=== PATIENT | female | born 1940 | race Two or more races ===

== ENCOUNTER 2018-10-19 06:49 | Day surgery (SDC) | payer OTHER ==
[2018-10-15 11:07] VITALS: BMI 23.6
[2018-10-19] MEDS ORDERED: THROMBIN (BOVINE) 5,000 UNIT VIAL TP ONE (07:06)
[2018-10-19] MEDS ORDERED: TETRACAINE 0.5% OPHTH SOLN 2 ML BOTTLE ONE (07:06)
[2018-10-19] MEDS ORDERED: ERYTHROMYCIN 0.5% OPHTHALMIC OINTMENT 3.5 GM TUBE ONE (07:06)
[2018-10-19] MEDS ORDERED: POVIDONE-IODINE 5% OPHTHALMIC PREP 30 ML SOLUTION ONE (07:07)
[2018-10-19] MEDS ORDERED: BUPIVACAINE HCL/PF 0.5% (5MG/ML) 10 ML VIAL ONE (07:07)
[2018-10-19] MEDS ORDERED: LIDOCAINE 1%/EPI 1:100000 (20 ML MULTI DOSE VIAL) ONE (07:07)
[2018-10-19] MEDS ORDERED: PROPOFOL 20 ML ONE ×3 (07:48)
[2018-10-19] MEDS ORDERED: MIDAZOLAM HCL 2 MG/2 ML SINGLE DOSE VIAL ONE (07:48)
[2018-10-19] MEDS ORDERED: SUCCINYLCHOLINE CHLORIDE 200 MG/10 ML VIAL ONE (07:50)
[2018-10-19] MEDS ORDERED: TETRACAINE 0.5% OPHTH SOLN 2 ML BOTTLE OU ONE (07:50)
[2018-10-19] MEDS ORDERED: ONDANSETRON 4 MG/2 ML VIAL ONE (07:56)
[2018-10-19] MEDS ORDERED: DEXAMETHASONE SOD PHOSPHATE 4 MG/1 ML VIAL ONE (07:56)
[2018-10-19] MEDS ORDERED: ceFAZolin SODIUM 1 GM VIAL ONE (07:56)
[2018-10-19] MEDS ORDERED: KETOROLAC TROMETHAMINE 30 MG/1 ML VIAL ONE (07:56)
[2018-10-19] MEDS ORDERED: ERYTHROMYCIN 0.5% OPHTHALMIC OINTMENT 3.5 GM TUBE OU ONE ×2 (08:20→09:07)
[2018-10-19 10:29] VITALS: TEMP 98
[2018-10-19 10:41] VITALS: BP 116/63; PULSE 70
--- NOTE | 2018-10-19 10:59 | OP ---
DATE OF OPERATION: 10/19/2018 PREOPERATIVE DIAGNOSIS: Epiphora, right and left eye in the setting of lower lid laxity and punctal verticalization. 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 PROCEDURE: Lateral tarsal strip, right lower lid; lateral tarsal strip, left lower lid; conjunctivoplasty of punctal inversion and excision of conjunctival chalasis, right; conjunctivoplasty with punctal inversion and excision of conjunctival chalasis, left. SURGEON: Kyle Bateman MD ANESTHESIA: Local with sedation. COMPLICATIONS: None. ESTIMATED BLOOD LOSS: 3-4 mL OPERATIVE REPORT: Patient was brought to the operating room, placed on the operating room table. Vital signs monitored by Anesthesia. Tetracaine was placed in both eyes. Lateral canthal line was marked, both lateral canthi. Timeout was performed. Following which, a 50/50 mixture of 2% Xylocaine and 1:100,000 epinephrine and 0.5% Marcaine was injected subcutaneously in the lateral canthi down to the periosteum of the lateral orbital rim, the lateral third of the upper and lower lid and nasal third of the lower lid transconjunctivally. Tetracaine had been placed in both eyes. The patient was prepped and draped in usual sterile fashion, exposing both eyes, and the following procedure was performed bilaterally. Lateral canthal incision was made at the lateral canthus. This was carried down through skin and subcutaneous tissue with 15 blade, followed by a Mcclain needle until the periosteum was reached. The inferior edin of the lateral canthal tendon was released from the orbital rim with sharp dissection with a Mcclain needle. Hemostasis was achieved with Mcclain needle. The lower lid was overlapped at the orbital rim, marked with sterile marking pen, divided into an anterior and posterior lamella. The anterior lamella was excised. The posterior lamella was noted inferiorly, posteriorly and superiorly, and the lateral tarsal strip that had been created was secured with a double-arm 5-0 chromic reinforced with two 6-0 Vicryl lasso sutures. These were passed through the internal surface of the orbital rim at the junction with the superior edin of the lateral canthal tendon. Prior to tying the Prolene, the lid was everted. Subpunctal diameter of conjunctival retractors was excised, and the retractors were then sutured in backhand fashion to the tarsal , straddling the punctum and then by a double-arm 5-0 chromic exited through full-thickness conjunctiva below the excision and around to the skin of the nasal eyelet for punctal inversion. A small amount of plica was removed inferiorly to get rid of conjunctival chalasis as best judged by the position of the eyelid once the Prolene was tightened. The lateral canthal angle was performed with a buried 5-0 chromic to the freeman line of the upper and lower lid, recreating the lateral canthal angle. The Prolene was then tied, attaching the tarsal strip to the orbital rim. The excess tarsal strip was overlapped with Prolene, tied with a 5-0 chromic. Antibiotic irrigation was used throughout the case. The subcuticular tissues were closed with 5-0 chromic, and the skin was closed with a running 6-0 plain suture with plastic technique. The nasal 5-0 chromic suture was now tied, inverting the punctum and tied on the external surface. Erythromycin ointment was placed in the eye and on the lateral canthus and on the nasal canthus and nasal suture, and the patient was taken to the recovery room in stable condition. KYLE BATEMAN M.D. [id number]
[2018-10-19] MEDS ORDERED: PROMETHAZINE HCL 25 MG/1 ML VIAL IVPUSH PRN (11:25)
[2018-10-19] MEDS ORDERED: oxyCODONE HCL 5 MG TABLET PO PRN ×2 (11:25)
[2018-10-19] MEDS ORDERED: ONDANSETRON 4 MG/2 ML VIAL IVPUSH PRN (11:25)
== END 2018-10-19 10:00 | disposition home or self-care (01) ==
LOC: FASU 06:49
PROVIDERS: ATTEND Ophthalmology
PROC: 08BQ0ZZ Excision of Right Lower Eyelid, Open Approach (ICD-10-PCS; 2018-10-19)
PROC: 08BR0ZZ Excision of Left Lower Eyelid, Open Approach (ICD-10-PCS; principal; 2018-10-19 08:10)
DX: H04.223 Epiphora due to insufficient drainage, bilateral (principal); H02.532 Eyelid retraction right lower eyelid; H02.535 Eyelid retraction left lower eyelid; H11.823 Conjunctivochalasis, bilateral
CPT/HCPCS: 82962